=== PATIENT | female | born 1945 | race Caucasian/White ===

== ENCOUNTER 2024-06-11 17:16 | Emergency (ER) | payer MEDICARE, SELFPAY ==
[2024-06-11 17:37] VITALS: BP 127/66; PULSE 63; RESP 16; TEMP 37.1; O2SAT 94
--- NOTE | 2024-06-11 21:39 | ED_ITS ---
HPI - Skin/Abscess/Foreign Bdy General Chief complaint: Skin/Abscess/Foreign Body Stated complaint: back is itching Time Seen by Provider: 06/11/24 18:15 Source: patient, family () and RN notes reviewed Mode of arrival: wheelchair Limitations: no limitations History of Present Illness HPI narrative: Patient presents today with a 4-5 week history of severely pruritic rash to the back, abdomen, bilateral lower legs, under the bilateral breasts and abdomen folds. States she has tried several [id number] options, but would not elaborate. Patient has not been evaluated for this rash prior to her arrival Related Data Home Medications ?Medication ?Instructions ?Recorded ?Confirmed ?Last Taken ?Type buspirone 5 mg tablet 5 mg PO DAILY 06/11/24 06/11/24 Unknown History ergocalciferol (vitamin D2) 1,250 1,250 mcg PO WEEKLY 06/11/24 06/11/24 Unknown History mcg (50,000 unit) capsule ezetimibe 10 mg tablet 10 mg PO DAILY 06/11/24 06/11/24 Unknown History metformin 500 mg tablet,extended 500 mg PO QPM 06/11/24 06/11/24 Unknown History release 24 hr metoprolol succinate 200 mg 200 mg PO DAILY 06/11/24 06/11/24 Unknown History tablet,extended release 24 hr mirabegron 25 mg tablet,extended 25 mg PO Q24H 06/11/24 06/11/24 Unknown History release 24 hr (Myrbetriq) potassium chloride 20 mEq 20 meq PO DAILY 06/11/24 06/11/24 Unknown History tablet,extended release(part/cryst) trazodone 150 mg tablet 150 mg PO DAILY 06/11/24 06/11/24 Unknown History triamterene 37.5 1 tablet PO DAILY 06/11/24 06/11/24 Unknown History mg-hydrochlorothiazide 25 mg tablet trospium 20 mg tablet 20 mg PO Q24H 06/11/24 06/11/24 Unknown History Allergies Allergy/AdvReac Type Severity Reaction Status Date / Time No Known Allergies Allergy Verified 06/11/24 17:45 Review of Systems Review of Systems: CONSTITUTIONAL: Denies body aches, fever, chills, or sweats. EYES: Denies visual changes, redness, or discharge. ENT: Denies rhinorrhea, congestion, sore throat, or otalgia. CARDIOVASCULAR: Denies chest pain, palpitations, or edema. RESPIRATORY: Denies cough or dyspnea. GASTROINTESTINAL: Denies abdominal pain, nausea, vomiting, or diarrhea. GENITOURINARY: Denies dysuria or hematuria. SKIN: Pruritic rash MUSCULOSKELETAL: Denies back pain, joint pain, or myalgia. NEUROLOGIC: Denies headache, numbness, tingling, or weakness. PSYCH: Denies depression or anxiety. PMFSH Comments At time of signature, I have reviewed and agree with nursing past medical, surgical, social and family history unless otherwise noted. Please see nursing chart for further information. There is no relevant family history pertinent to the presenting complaint Exam Narrative: GENERAL: Chronically ill-appearing, well-nourished, and in no acute distress. HEAD: Normocephalic, atraumatic. EYES: EOMI. No redness or drainage. Conjunctivae normal. ENT: Mucous membranes pink and moist. NECK: Normal AROM. CHEST: No respiratory distress. EXTREMITIES: Normal range of motion. SKIN: Warm, dry. Patient has a mildly erythematous intertriginous rash under the bilateral breast folds and abdominal folds. She has a different pink scattered tiny maculopapular rash to the back without signs of bacterial infection. Her right medial ankle is erythematous with an open wound measuring approximately 3 x 2 cm with a yellow base. states this wound has been open before, healed, and has been scratched open again. NEURO: No focal deficits. Alert and oriented x3. Gait steady. PSYCH: Normal affect. No signs of depression or anxiety. Course Course Level of Care: Express Care Visit Vital Signs Vital signs: Vital Signs Temperature 98.8 F 06/11/24 17:37 Pulse Rate 63 06/11/24 17:37 Respiratory Rate 16 06/11/24 17:37 Blood Pressure 127/66 06/11/24 17:37 Pulse Oximetry 94 06/11/24 17:37 Oxygen Delivery Room Air 06/11/24 17:37 Temperature 98.8 F 06/11/24 17:37 Pulse Rate 63 06/11/24 17:37 Respiratory Rate 16 06/11/24 17:37 Blood Pressure 127/66 06/11/24 17:37 Pulse Oximetry 94 06/11/24 17:37 Oxygen Delivery Room Air 06/11/24 17:37 Reviewed MDM - Skin/Abscess/Foreign Bdy MDM Narrative Medical decision making narrative: Recommend the intertriginous rash be treated with OTC clotrimazole. Etiology of the back rash is unclear, but is not infected. Considered short course of prednisone, but patient is diabetic and does not check her blood sugar, does not know if her sugars are well controlled. Prescription for Rafaela sent to [facility] to help with the itching. Prescription for Keflex sent to pharmacy to help with the open wound and surrounding cellulitis to the right ankle. Recommend PCP follow-up in 1 week. Differential Diagnosis Differential diagnosis: Likely viral exanthem, dermatophytosis, urticaria, cellulitis, eczema, impetigo, contact dermatitis and other (Geraldine, intertrigo) Critical Care Time Critical Care Time Critical Care Time: No Discharge Plan Discharge Clinical Impression: Intertrigo, Cellulitis of right ankle, Dermatitis Patient Disposition: Home, Self-Care Condition: Stable Instructions: Antibiotic Form, Skin Yeast Infection (ED) Additional Instructions: Please apply clotrimazole cream under your breast and abdomen folds twice daily for at least 2 weeks. Take the Keflex for the skin infection and wound on your right ankle. Please have this re-evaluated when you are finished with the antibiotics to ensure that it is continuing to heal. Take Rafaela for itching. Follow up with your PCP in 1 week if symptoms persist. Your blood pressure was elevated above 120/80 today at Urgent Care. This puts you above the threshold for follow up. Please schedule a followup visit with your personal physician as soon as possible, for further evaluation and treatment. Even blood pressure exceeding 120/80 may indicate pre-hypertension. Patient Language: Bulgarian Prescriptions: New cephalexin 500 mg capsule 500 mg PO Q6H 10 Days Qty: 40 0RF fexofenadine 180 mg tablet 180 mg PO DAILY Qty: 14 0RF No Action buspirone 5 mg tablet 5 mg PO DAILY ergocalciferol (vitamin D2) 1,250 mcg (50,000 unit) capsule 1,250 mcg PO WEEKLY ezetimibe 10 mg tablet 10 mg PO DAILY metformin 500 mg tablet extended release 24 hr 500 mg PO QPM metoprolol succinate 200 mg tablet extended release 24 hr 200 mg PO DAILY mirabegron [Myrbetriq] 25 mg tablet extended release 24 hr 25 mg PO Q24H potassium chloride 20 mEq tablet,ER particles/crystals 20 meq PO DAILY trazodone 150 mg tablet 150 mg PO DAILY triamterene-hydrochlorothiazid 37.5-25 mg tablet 1 tablet PO DAILY trospium 20 mg tablet 20 mg PO Q24H Follow-up/Referrals: PHYSICIAN NOT ON STAFF,NONSTAFF [Primary Care Provider] - Time of Disposition: 18:29
== END 2024-06-11 18:31 | disposition home or self-care (01) ==
PROVIDERS: Emergency Provider Nurse Practitioner
DX: L30.4 Erythema intertrigo (principal); L03.115 Cellulitis of right lower limb; L30.9 Dermatitis, unspecified; I10 Essential (primary) hypertension; E11.9 Type 2 diabetes mellitus without complications; Z79.84 Long term (current) use of oral hypoglycemic drugs
CPT/HCPCS: 99203; G0463

== ENCOUNTER 2025-01-29 18:01 | Emergency (ER) | payer MEDICARE, SELFPAY ==
--- NOTE | 2025-01-29 18:05 | ED.FEMALEGU ---
HPI - Female Genitourinary General Chief complaint: Urogenital-Female Stated complaint: UTI Time Seen by Provider: 01/29/25 18:05 Source: patient Mode of arrival: ambulatory Limitations: no limitations History of Present Illness HPI Narrative: Patient is an 79-year-old female who presents with painful urination and frequency. Patient reports she has frequency Kristi the time from [facility]. Denies any low back pain, urgency, flank pain, fever, chills, nausea, vomiting, diarrhea. MD elicited complaint: dysuria Related Data Home Medications ?Medication ?Instructions ?Recorded ?Confirmed ?Last Taken ?Type buspirone 5 mg tablet 5 mg PO DAILY 06/11/24 06/11/24 Unknown History ergocalciferol (vitamin D2) 1,250 1,250 mcg PO WEEKLY 06/11/24 06/11/24 Unknown History mcg (50,000 unit) capsule ezetimibe 10 mg tablet 10 mg PO DAILY 06/11/24 06/11/24 Unknown History metformin 500 mg tablet,extended 500 mg PO QPM 06/11/24 06/11/24 Unknown History release 24 hr metoprolol succinate 200 mg 200 mg PO DAILY 06/11/24 06/11/24 Unknown History tablet,extended release 24 hr potassium chloride 20 mEq 20 meq PO DAILY 06/11/24 06/11/24 Unknown History tablet,extended release(part/cryst) trazodone 150 mg tablet 150 mg PO DAILY 06/11/24 06/11/24 Unknown History triamterene 37.5 1 tablet PO DAILY 06/11/24 06/11/24 Unknown History mg-hydrochlorothiazide 25 mg tablet empagliflozin 10 mg tablet mg 01/29/25 Unknown History (Jardiance) memantine 7 mg capsule mg PO 01/29/25 Unknown History sprinkle,extended release 24hr Allergies Allergy/AdvReac Type Severity Reaction Status Date / Time No Known Allergies Allergy Verified 01/29/25 18:03 Review of Systems Review of Systems: All systems reviewed & are unremarkable except as noted in HPI and below Constitutional: Constitutional: Denies chills, Denies fever(s), Denies headache(s), Denies malaise and Denies weakness Eyes: Eyes: Denies change in vision, Denies eye discharge and Denies irritation ENT: Denies otalgia, Denies headache(s), Denies nasal congestion, Denies nasal discharge, Denies sinus pain and Denies sore throat Cardiovascular: Cardiovascular: Denies chest pain, Denies edema, Denies palpitations and Denies dyspnea Respiratory: Respiratory: Denies cough and Denies dyspnea Gastrointestinal: Gastrointestinal: Denies abdominal pain, Denies diarrhea, Denies nausea and Denies vomiting Genitourinary: Genitourinary: Denies hematuria, Reports nocturia, Reports dysuria, Denies flank pain and Denies urinary urgency Musculoskeletal: Musculoskeletal: Denies back pain and Denies numbness Integumentary/Breasts: Skin/Breast: Denies pruritus and Denies rash Neurologic: Denies headache(s), Denies numbness and Denies weakness Psychiatric: Psychiatric: Reports no additional psychiatric complaints Endocrine: Endocrine: Denies palpitations PMFSH Comments At time of signature, agree with nursing past medical, surgical, social and family history. There is no relevant family history pertinent to the presenting complaint. Exam Const: General: cooperative, healthy appearing, comfortable, no acute distress and well nourished Nutritional Appearance: well nourished Orientation/consciousness: patient oriented x3 HENMT: Head: normocephalic and atraumatic Ears: external ears normal Face/Nose/Sinus: Normal external nose present, Normal nares present and normal facial exam Face and sinus: normal facial exam Eyes: General: appearance normal, both eyes and all related structures Pupils: Equal, round and reactive pupils present EOM: EOMs intact bilaterally Neck: Neck: normal visual inspection, full ROM and supple Chest: Chest palpation & inspection: normal inspection of the chest Resp: Effort & Inspection: normal respiratory effort and able to speak in complete sentences Cardio: Rate: regular rate Rhythm: regular rhythm GI: Inspection: normal to inspection GI Palp: No abdominal tenderness and Yes Soft to palpation : General: Yes no CVA tenderness Back/Spine/Pelvis: Back: no CVA tenderness Skin: General skin exam: normal color and no rashes or lesions noted Neuro: General: patient oriented x3 and moves all extremities Cranial nerves: Yes Equal, round and reactive pupils present Extrem: General: normal to inspection and full ROM Psych: Appearance: grossly normal and well kempt Course Course Emergency Course: Patient is aware of diagnosis, understands and agrees to treatment plan. Anticipatory guidance given. Patient agrees to follow-up as directed and is aware of reasons to seek care at the emergency department. Portions of this record may have been created with voice recognition software Level of Care: Express Care Visit Vital Signs Vital signs: Vital Signs Temperature 37.2 C 01/29/25 18:08 Pulse Rate 61 01/29/25 18:08 Respiratory Rate 20 01/29/25 18:08 Blood Pressure 131/58 L 01/29/25 18:08 Pulse Oximetry 94 01/29/25 18:08 Oxygen Delivery Room Air 01/29/25 18:08 Temperature 37.2 C 01/29/25 18:08 Pulse Rate 61 01/29/25 18:08 Respiratory Rate 20 01/29/25 18:08 Blood Pressure 131/58 L 01/29/25 18:08 Pulse Oximetry 94 01/29/25 18:08 Oxygen Delivery Room Air 01/29/25 18:08 Reviewed MDM - Female Genitourinary MDM Narrative Medical decision making narrative: Exam findings and UA show do not show signs of active infection. Discussed delaying antibiotic treatment until culture results with patient. Patient is understanding and agreeable. Patient states she drinks 7 cans of soda a day and very little water which may cause urinary irritation. Patient has urinary doctor in [place]; patient is non-toxic appearing and is in no distress. No CMT, adnexal tenderness, or evidence of pelvic etiology. Patient is appropriate for outpatient treatment and follow-up. Differential Diagnosis Differential diagnosis: Likely urinary tract infection, bacterial vaginosis, trichomoniasis, cervicitis, vaginitis and cystitis Medical Records Attestation: I reviewed the patient's medical records. Lab Data Attestation: I reviewed the patient's lab results. Labs: Lab Results 01/29/25 Range/Units 18:45 POC Urine Color Yellow POC Urine Clarity Cloudy POC Urine pH 5.5 POC Ur Specif [place] 1.030 POC Urine Protein 2+ (Negative) POC Ur Glucose (UA) 2+ (Negative) POC Urine Ketones Negative (Negative) POC Urine Blood 1+ (Negative) POC Urine Nitrite Negative (Negative) POC Urine Bilirubin Negative (Negative) POC Urine Urobilinogen 0.2 POC U Leukocyte Esteras Negative (Negative) Discharge Plan Discharge Clinical Impression: Dysuria Patient Disposition: Home Condition: Stable Instructions: Dysuria (ED) Additional Instructions: We will send a urine culture to the lab. If culture comes back with bacterial growth we will put you on an antibiotic If necessary, Your symptoms should improve within a day of starting antibiotics, but you should finish all the antibiotic pills you get. Otherwise your infection might come back Continue with increased water intake. Take Tylenol or ibuprofen as needed for pain or fever. Follow-up with primary care provider for urine recheck or see ER visit if condition worsens with high fever, nausea, vomiting, severe back pain Patient Language: Syriac Prescriptions: No Action buspirone 5 mg tablet 5 mg PO DAILY ergocalciferol (vitamin D2) 1,250 mcg (50,000 unit) capsule 1,250 mcg PO WEEKLY ezetimibe 10 mg tablet 10 mg PO DAILY metformin 500 mg tablet extended release 24 hr 500 mg PO QPM metoprolol succinate 200 mg tablet extended release 24 hr 200 mg PO DAILY potassium chloride 20 mEq tablet,ER particles/crystals 20 meq PO DAILY trazodone 150 mg tablet 150 mg PO DAILY triamterene-hydrochlorothiazid 37.5-25 mg tablet 1 tablet PO DAILY memantine 7 mg capsule,sprinkle,ER 24hr PO Jardiance 10 mg tablet Follow-up/Referrals: Lidia,MD Alice [Primary Care Provider, Unknown] - 3 Days Time of Disposition: 19:02
[2025-01-29 18:08] VITALS: BP 131/58; PULSE 61; RESP 20; TEMP 37.2; O2SAT 94
[2025-01-29 18:54] LABS: EDUAAPPEAR Cloudy; EDUABILI Negative (Negative); EDUABLOOD 1+ (Negative); EDUACOLOR1 Yellow; EDUAGLUCOSE 2+ (Negative); EDUAKETONE Negative (Negative); EDUALEUKO Negative (Negative); EDUANITRATE Negative (Negative); EDUAPH 5.5; EDUAPROTEIN 2+ (Negative); EDUASPGRAVITY 1.030; EDUAUROBILI 0.2
== END 2025-01-29 19:05 | disposition home or self-care (01) ==
PROVIDERS: Emergency Provider Nurse Practitioner Family; PCP Family Medicine
DX: R30.0 Dysuria (principal); G30.9 Alzheimer's disease, unspecified; F02.80 Dementia in other diseases classified elsewhere, unspecified severity, without behavioral disturbance, psychotic disturbance, mood disturbance, and anxiety; I10 Essential (primary) hypertension; E78.00 Pure hypercholesterolemia, unspecified; G47.30 Sleep apnea, unspecified; K21.9 Gastro-esophageal reflux disease without esophagitis; E11.9 Type 2 diabetes mellitus without complications; Z79.84 Long term (current) use of oral hypoglycemic drugs; F41.9 Anxiety disorder, unspecified; F32.A Depression, unspecified
CPT/HCPCS: 81003; 87086; 99213; G0463